=== PATIENT | male | born 1985 | race Two or more races ===

== ENCOUNTER 2021-05-28 21:59 | Emergency (ER) | payer OTHER ==
[~2021-05-28] VITALS: Ht 180.3 cm; Wt 77.1 kg
== END 2021-05-28 23:59 | disposition home or self-care (01) ==
LOC: ER 21:59
DX: U07.1 COVID-19 (principal)

== ENCOUNTER 2021-06-03 07:48 | Emergency (ER) | payer OTHER ==
[~2021-06-03] VITALS: Ht 172.7 cm; Wt 77.1 kg
== END 2021-06-03 10:58 | disposition home or self-care (01) ==
LOC: ER 07:48
DX: J06.9 Acute upper respiratory infection, unspecified (principal); J02.8 Acute pharyngitis due to other specified organisms; Z20.822 Contact with and (suspected) exposure to COVID-19